=== PATIENT | male | born 2000 | race Caucasian/White ===

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

== ENCOUNTER 2020-04-21 19:51 | Emergency (ER) | payer OTHER ==
[~2020-04-21] VITALS: Ht 177.8 cm; Wt 65.8 kg
[~2020-04-21 19:51] MED LIST: NOHOMEMEDICATIONS
[2020-04-21 19:52] VITALS: BP 144/83
[2020-04-21] MEDS ORDERED: TRAZODONE HCL50 MG PO (19:55)
[2020-04-21] MEDS ORDERED: HYDROXYZINE HCL50 MG PO (19:55)
[2020-04-21] MEDS ORDERED: ABILIFY10 MG PO (19:56)
== END 2020-04-21 20:48 | disposition home or self-care (01) ==
LOC: M.ERS 19:51
DX: R51.9 Headache, unspecified (principal)